=== PATIENT | male | born 1985 | race Caucasian/White ===

== ENCOUNTER 2017-10-18 04:15 | Inpatient (IN) | payer OTHER ==
[2017-10-18 04:27] VITALS: BMI 21.9
[2017-10-18] MEDS ORDERED: morphine CARPU-JECT 10 MG/1 ML DISP.SYRIN IVPUSH ONE ×2 (04:43→06:40)
[2017-10-18] MEDS ORDERED: ONDANSETRON 4 MG/2 ML VIAL IVPB ONE ×2 (04:43→12:15)
[2017-10-18] MEDS ORDERED: SODIUM CHLORIDE 0.9% 500 ML INFUS.BAG IV ONE (04:44)
--- NOTE | 2017-10-18 04:44 | PDOC ---
History of Present Illness - General Chief Complaint: Pain, Acute Stated Complaint: ABDOMINAL CRAMPING X 2 HOURS Time Seen by Provider: 10/18/17 04:41 - History of Present Illness Initial Comments: 10/18/17 06:43 Hx of crohns disease, dx'd in [place] about 10 years ago by biopsy, required treatment with biologics, though since then has not required treatment. SInce, then, one ED visit in [place] for abd symptoms without a specific diagnosis. Presenting now with 1/2 day of abd bloating and cramping pain. No n/v/d. Timing/Duration: 4-6 hours Severity: moderate Modifying Factors: worse with: eating Associated Symptoms: denies: fever/chills, nausea/vomiting Past History - Past Medical History Allergies/Adverse Reactions: Allergies Allergy/AdvReac Type Severity Reaction Status Date / Time No Known Allergies Allergy Verified 10/18/17 04:19 Home Medications: Ambulatory Orders Desvenlafaxine Succinate [Pristiq] 50 mg PO DAILY 10/18/17 Finasteride [Proscar -] 5 mg PO DAILY 10/18/17 COPD: No GI Disorders: Yes (CHROHNS 2009) - Suicide/Smoking/Psychosocial Hx Smoking History: Never smoked Have you smoked in the past 12 months: No Information on smoking cessation initiated: No Hx Alcohol Use: No Drug/Substance Use Hx: No Substance Use Type: None Review of Systems - Review of Systems All Other Systems: Reviewed and Negative *Physical Exam - Vital Signs Last Vital Signs Temp Pulse Resp BP Pulse Ox 98.6 F 82 16 123/82 123 H 10/18/17 04:22 10/18/17 04:22 10/18/17 04:22 10/18/17 04:22 10/18/17 04:22 - Physical Exam General Appearance: Yes: Nourished HEENT: positive: Normal Voice Neck: positive: Supple Respiratory/Chest: positive: Lungs Clear Cardiovascular: positive: Regular Rhythm Gastrointestinal/Abdominal: positive: Tender, Distended, Tenderness Lymphatic: negative: Adenopathy Musculoskeletal: positive: Normal Inspection Extremity: positive: Normal Capillary Refill Integumentary: positive: Normal Color Neurologic: positive: Fully Oriented ED Treatment Course - LABORATORY CBC & Chemistry Diagram: 10/18/17 05:00 10/18/17 05:00 Medical Decision Making - Medical Decision Making 10/18/17 06:47 concern for acute crohns enterocolitis analgesia IVF labs + image *DC/Admit/Observation/Transfer Diagnosis at time of Disposition: Abdominal pain Qualifiers: Abdominal location: generalized Qualified Code(s): R10.84 - Generalized abdominal pain - Discharge Dispostion Condition at time of disposition: Stable - Referrals - Patient Instructions - Post Discharge Activity
[2017-10-18] MEDS ORDERED: ONDANSETRON 4 MG/2 ML VIAL ONE ×2 (04:56→11:06)
[2017-10-18] MEDS ORDERED: morphine CARPU-JECT 10 MG/1 ML DISP.SYRIN ONE ×3 (04:56→11:06)
[2017-10-18 05:32] LABS: BASO % 0.3 % (0-2.0); EOS % 0.9 % (0-4.5); HEMATOCRIT 44.7 % (35.4-49); HEMOGLOBIN 15.1 GM/dL (11.7-16.9); LYMPH % 11.9 % (8-40); MCH 29.6 pg (25.7-33.7); MCHC 33.9 g/dl (32.0-35.9); MEAN CELL VOLUME 87.6 fl (80-96); MEAN PLT VOLUME 9.2 fl (7.5-11.1); MONO % 5.9 % (3.8-10.2); PLATELET COUNT 293 K/MM3 (134-434); RBC 5.11 M/mm3 (4.00-5.60); RDW 13.6 % (11.9-15.9); WHITE BLOOD COUNT 10.1 K/mm3 (4.0-10.0)
[2017-10-18 05:36] LABS: URINE APPEARANCE CLEAR; URINE BILIRUBIN NEGATIVE (<2.0 mg/dL); URINE BLOOD NEGATIVE (NEGATIVE); URINE COLOR STRAW; URINE GLUCOSE (UA) NEGATIVE (NEGATIVE); URINE KETONE NEGATIVE (NEGATIVE); URINE LEUK ESTERASE NEGATIVE (NEGATIVE); URINE NITRITE NEGATIVE (NEGATIVE); URINE PROTEIN NEGATIVE (NEGATIVE); URINE UROBILINOGEN NEGATIVE mg/dL (0.2-1.0)
[2017-10-18] MEDS ORDERED: morphine CARPU-JECT 4 MG/1 ML DISP.SYRIN IVPUSH ONE ×3 (05:39→12:16)
[2017-10-18 06:16] LABS: ALBUMIN 4.1 g/dl (3.4-5.0); ANION GAP 13 (8-16); BILIRUBIN,TOTAL 0.3 mg/dL (0.2-1.0); BLOOD UREA NITROGEN 17 mg/dL (7-18); CALCIUM 9.7 mg/dL (8.5-10.1); CHLORIDE 102 mmol/L (98-107); CO2 26 mmol/L (21-32); CREATININE 0.8 mg/dL (0.7-1.3); GLUCOSE,RANDOM 113 mg/dL (74-106); LIPASE 120 U/L (73-393); POTASSIUM 4.5 mmol/L (3.5-5.1); SGOT/AST 37 U/L (15-37); SGPT/ALT 84 U/L (12-78); SODIUM 141 mmol/L (136-145); TOT PROT 7.6 g/dl (6.4-8.2)
[2017-10-18 06:17] LABS: ALK PHOS 110 U/L (45-117)
[2017-10-18 10:06] LABS: ERYTHROCYTE SEDIMENTATION RATE 8 mm/hr (0-10)
--- NOTE | 2017-10-18 10:11 | PDOC ---
*Physical Exam - Vital Signs Last Vital Signs Temp Pulse Resp BP Pulse Ox 98.6 F 87 18 114/83 96 10/18/17 10:06 10/18/17 10:06 10/18/17 10:06 10/18/17 10:06 10/18/17 10:06 - Physical Exam Comments:: 10/18/17 10:09 Pain is still present but subsiding somewhat. No vomiting. No diarrhea CT shows evidence of inflammation in the ileocecal region with possible partial obstruction. Admission discussed with the patient and his family. Hospitalist contacted. GI consult contacted. Patient is hemodynamically stable without evidence of peritonitis or sepsis. 10/18/17 11:04 Spoke with , GI. She will evaluate the patient in consult at [facility]. She recommends steroids since there is no diarrhea. Steroids administered and hospitalist contacted for admission. ED Treatment Course - LABORATORY CBC & Chemistry Diagram: 10/18/17 05:00 10/18/17 05:00 - ADDITIONAL ORDERS Additional order review: Laboratory Results 10/18/17 10/18/17 05:00 05:00 Sodium 141 Potassium 4.5 Chloride 102 Carbon Dioxide 26 Anion Gap 13 BUN 17 Creatinine 0.8 Creat Clearance w eGFR > 60 Random Glucose 113 H Calcium 9.7 Total Bilirubin 0.3 AST 37 ALT 84 H Alkaline Phosphatase 110 Total Protein 7.6 Albumin 4.1 Lipase 120 Urine Color Straw Urine Appearance Clear Urine pH 7.0 Ur Specific [place] 1.011 Urine Protein Negative Urine Glucose (UA) Negative Urine Ketones Negative Urine Blood Negative Urine Nitrite Negative Urine Bilirubin Negative Urine Urobilinogen Negative Ur Leukocyte Esterase Negative 10/18/17 05:00 RBC 5.11 MCV 87.6 MCHC 33.9 RDW 13.6 MPV 9.2 Neutrophils % 81.0 Lymphocytes % 11.9 Monocytes % 5.9 Eosinophils % 0.9 Basophils % 0.3 - Medications Given in the ED: ED Medications Discontinued Medications Generic Name Dose Route Start Last Admin Trade Name Freq PRN Reason Stop Dose Admin Morphine Sulfate 6 mg 10/18/17 04:43 10/18/17 05:09 Morphine Injection - IVPUSH 10/18/17 04:44 6 mg ONCE ONE Administration Morphine Sulfate 4 mg 10/18/17 05:39 10/18/17 05:39 Morphine Injection - IVPUSH 10/18/17 05:40 4 mg NOW ONE Administration Morphine Sulfate 6 mg 10/18/17 06:40 10/18/17 06:54 Morphine Injection - IVPUSH 10/18/17 06:41 6 mg ONCE ONE Administration Ondansetron HCl 4 mg 10/18/17 04:43 10/18/17 05:09 Zofran Injection IVPB 10/18/17 04:44 4 mg ONCE ONE Administration Sodium Chloride 1,000 ml 10/18/17 04:44 10/18/17 04:57 Normal Saline - IV 10/18/17 04:45 1,000 ml ONCE ONE Administration *DC/Admit/Observation/Transfer Diagnosis at time of Disposition: Abdominal pain Qualifiers: Abdominal location: generalized Qualified Code(s): R10.84 - Generalized abdominal pain - Discharge Dispostion Condition at time of disposition: Stable Admit: Yes - Referrals - Patient Instructions - Post Discharge Activity
[2017-10-18] MEDS ORDERED: morphine SULFATE 4 MG/ML VIAL ONE (10:13)
[2017-10-18] MEDS ORDERED: HYDROmorphone HCL CARPU-JECT 1 MG/1 ML DISP.SYRIN IVPB ONE (12:08)
--- NOTE | 2017-10-18 12:11 | HP ---
CHIEF COMPLAINT: abdominal pain PCP: Dr Friedman HISTORY OF PRESENT ILLNESS: Patient is a 32 y/o male with a past medical history of crohn's disease and depression. He was treated 10 years ago at [facility], received remecidade and 6 mercaptopurine. patient reports he has been in remission for the past 10 years and has not followed up with GI since 2010. Patient reports developing abdominal pain and bloating for the past 12 hours. He denies any fever. ER course was notable for: (1) ct of abd/pelvis thickening of the terminal ileum wall with moderate dilation of distal ileum bowel loop suggestive of obstruction at the ileocecal valve (partial), suggestive of inflammatory/infectious, no evidence of extraluminal air or fluid collection/abscess (2) wbc 10.1 (3) Recent Travel: none PAST MEDICAL HISTORY: see hpi PAST SURGICAL HISTORY: none Social History: employed health care attorney, , 1 daughter Smoking:none Alcohol:none Drugs: none Family History: mother alive and well father alive and well, htn Allergies No Known Allergies Allergy (Verified 10/18/17 04:19) HOME MEDICATIONS: Home Medications Medication Instructions Recorded Desvenlafaxine Succinate [Pristiq] 50 mg PO DAILY 10/18/17 Finasteride [Proscar -] 5 mg PO DAILY 10/18/17 REVIEW OF SYSTEMS CONSTITUTIONAL: Absent: fever, chills, diaphoresis, generalized weakness, malaise, loss of appetite, weight change HEENT: Absent: rhinorrhea, nasal congestion, throat pain, throat swelling, difficulty swallowing, mouth swelling, ear pain, eye pain, visual changes CARDIOVASCULAR: Absent: chest pain, syncope, palpitations, irregular heart rate, lightheadedness , peripheral edema RESPIRATORY: Absent: cough, shortness of breath, dyspnea with exertion, orthopnea, wheezing, stridor, hemoptysis GASTROINTESTINAL: present: abdominal pain, nausea Absent: abdominal distension, vomiting, diarrhea, constipation, melena, hematochezia GENITOURINARY: Absent: dysuria, frequency, urgency, hesitancy, hematuria, flank pain, genital pain MUSCULOSKELETAL: Absent: myalgia, arthralgia, joint swelling, back pain, neck pain SKIN: Absent: rash, itching, pallor HEMATOLOGIC/IMMUNOLOGIC: Absent: easy bleeding, easy bruising, lymphadenopathy, frequent infections ENDOCRINE: Absent: unexplained weight gain, unexplained weight loss, heat intolerance, cold intolerance NEUROLOGIC: Absent: headache, focal weakness or paresthesias, dizziness, unsteady gait, seizure, mental status changes, bladder or bowel incontinence PSYCHIATRIC: Absent: anxiety, depression, suicidal or homicidal ideation, hallucinations. PHYSICAL EXAMINATION Vital Signs - 24 hr 10/18/17 10/18/17 10/18/17 04:22 05:38 06:40 Temperature 98.6 F Pulse Rate 82 Pulse Rate [ 95 H Right Radial] Respiratory 16 16 Rate Blood Pressure 123/82 Blood Pressure 129/92 121/83 [Left Arm] O2 Sat by Pulse 123 H 95 Oximetry (%) 10/18/17 10:06 Temperature 98.6 F Pulse Rate Pulse Rate [ 87 Right Radial] Respiratory 18 Rate Blood Pressure Blood Pressure 114/83 [Left Arm] O2 Sat by Pulse 96 Oximetry (%) GENERAL: Awake, alert, and fully oriented, in no acute distress. HEAD: Normal with no signs of trauma. EYES: Pupils equal, round and reactive to light, extraocular movements intact, sclera anicteric, conjunctiva clear. No lid lag. EARS, NOSE, THROAT: Ears normal, nares patent, oropharynx clear without exudates. Moist mucous membranes. NECK: Normal range of motion, supple without lymphadenopathy, JVD, or masses. LUNGS: Breath sounds equal, clear to auscultation bilaterally. No wheezes, and no crackles. No accessory muscle use. HEART: Regular rate and rhythm, normal S1 and S2 without murmur, rub or gallop. ABDOMEN: Soft, diffuse abdominal tenderness, not distended, normoactive bowel sounds, no guarding, no rebound, no masses. No hepatomegaly or splenomegaly. MUSCULOSKELETAL: Normal range of motion at all joints. No bony deformities or tenderness. No CVA tenderness. UPPER EXTREMITIES: 2+ pulses, warm, well-perfused. No cyanosis. No clubbing. No peripheral edema. LOWER EXTREMITIES: 2+ pulses, warm, well-perfused. No calf tenderness. No peripheral edema. NEUROLOGICAL: Cranial nerves II-XII intact. Normal speech. Normal gait. PSYCHIATRIC: Cooperative. Good eye contact. Appropriate mood and affect. SKIN: Warm, dry, normal turgor, no rashes or lesions noted, normal capillary refill. Laboratory Results - last 24 hr 10/18/17 10/18/17 10/18/17 05:00 05:00 05:00 WBC 10.1 H RBC 5.11 Hgb 15.1 Hct 44.7 MCV 87.6 MCH 29.6 MCHC 33.9 RDW 13.6 Plt Count 293 MPV 9.2 Neutrophils % 81.0 Lymphocytes % 11.9 Monocytes % 5.9 Eosinophils % 0.9 Basophils % 0.3 ESR 8 Sodium 141 Potassium 4.5 Chloride 102 Carbon Dioxide 26 Anion Gap 13 BUN 17 Creatinine 0.8 Creat Clearance w eGFR > 60 Random Glucose 113 H Calcium 9.7 Total Bilirubin 0.3 AST 37 ALT 84 H Alkaline Phosphatase 110 Total Protein 7.6 Albumin 4.1 Lipase 120 Urine Color Straw Urine Appearance Clear Urine pH 7.0 Ur Specific [place] 1.011 Urine Protein Negative Urine Glucose (UA) Negative Urine Ketones Negative Urine Blood Negative Urine Nitrite Negative Urine Bilirubin Negative Urine Urobilinogen Negative Ur Leukocyte Esterase Negative ASSESSMENT/PLAN: 1) GI crohn's disease exacerbation partial obstruction - ct of abd reviewed, consistent with acute crohn's exacerbation, discussed with GI Dr Deras, start solumedrol 20mg tid - start empiric rocephin and flagyl - trend wbc and fever curve - GI, Dr Deras consulted and followed - appreciate surgery input 2) psych depression - continue home medication f/e/n - npo - replete electrolytes prn ppx - pepcid - oob - scd dispo: pt requires inpatient admission Hospitalist Screening - Colonoscopy Questionnaire Colonoscopy Questionnaire: Colonoscopy Questionnaire
[2017-10-18] MEDS ORDERED: PATIENT'S OWN MEDICATION (NON-FORMULARY) (Desvenlafaxine Succinate [Pristiq] 50 MG) PO SCH (12:15)
[2017-10-18] MEDS ORDERED: HYDROCORTISONE SOD SUCCINATE 100 MG/2 ML VIAL IVPB ONE (12:17)
[2017-10-18] MEDS: FAMOTIDINE 20 MG/50 ML IVPB 20 MG/50 ML MG IVPB SCH ×2 (12:30→21:31)
[2017-10-18] MEDS ORDERED: FAMOTIDINE 20 MG/50 ML IVPB 20 MG/50 ML MG IVPB ONE (12:32)
[2017-10-18] MEDS ORDERED: HYDROmorphone HCL CARPU-JECT 1 MG/1 ML DISP.SYRIN ONE (12:32)
[2017-10-18] MEDS ORDERED: HYDROCORTISONE SOD SUCCINATE 2 ML ONE (12:32)
[2017-10-18] MEDS: SODIUM CHLORIDE 1,000 ML IV SCH (12:41)
--- NOTE | 2017-10-18 13:03 | CON.GI ---
Consult Reason for Consultation:: abdominal pain - History of Present Illness History of Present Illness: Mr. Yu is a 32 year old man with a past medical history significant for Crohn's disease diagnosed approximately 10 years ago. He was treated with remicade in the past and now is not an any medications. He presents to the hospital with complaints of abdominal pain - right sided /bloating and cramps. He denies diarrhea, melena, BRBR, nausea, vomiting, fever, chills, travel, abx use. He has not had a recent endoscopic evaluation. - History Source History Provided By: Patient Limitations to Obtaining History: No Limitations - Past Medical History CLOSING COORDINATOR: No: Alzheimer's, CVA, Dementia, Migraine, Multiple Sclerosis, Peripheral Neuropathy, Parkinson's, Seizure, Syncope, TIA, Vertigo, Other Cardio/Vascular: No: AFIB, Aneurysm, Aortic Insufficiency, Aortic Stenosis, CAD , CHF, Deep Vein Thrombosis, HTN, Hyperlipdemia, PA, Mitral Insufficiency, Mitral Stenosis, Murmur, Pulmonary Hypertension, Other Pulmonary: No: Asthma, Bronchitis, Cancer, COPD, O2 Dependent, Pneumonia, Previously Intubated, Pulmonary Embolus, Pulmonary Fibrosis, Sleep Apnea, Other Gastrointestinal: Yes: Other Hepatobiliary: No: Cirrhosis, Cholelithiasis, Cholecystitis, Choledocholithiasis , Hepatitis A, Hepatitis B, Hepatitis C, Other Renal/: Yes: Other (BPH) Heme/Onc: No: Anemia, B12 Deficiency, Bleeding Disorder, Cancer, Current Chemotherapy, Current Radiation Therapy, Hemochromatosis, Hypercoaguable State, Myeloproliferative Synd, Sickle Cell Disease, Sickle Cell Trait, Thrombocytopenia, Other Psych: No: Addictions, Anxiety, Bipolar, Depression, Panic, Psychosis, Schizophrenia, Other Musculoskeletal: No: Bursitis, Chronic low back pain, Hemiparesis, Hemiplegia, Osteoarthritis, Paraplegia, Other Rheumatology: No: Fibromyalgia, Gout, Lupus, Rheumatoid Arthritis, Sarcoidosis, Vasculitis, Other ENT: No: Allergic Rhinitis, Sinusitis, Other - Alcohol/Substance Use Hx Alcohol Use: No - Smoking History Smoking history: Never smoked Have you smoked in the past 12 months: No Home Medications - Allergies Allergies/Adverse Reactions: Allergies Allergy/AdvReac Type Severity Reaction Status Date / Time No Known Allergies Allergy Verified 10/18/17 04:19 - Home Medications Home Medications: Ambulatory Orders Desvenlafaxine Succinate [Pristiq] 50 mg PO DAILY 10/18/17 Finasteride [Proscar -] 5 mg PO DAILY 10/18/17 Family Disease History - Family Disease History Family History: Denies Review of Systems - Review of Systems Constitutional: reports: Weakness Eyes: denies: No Symptoms, Blind Spots, Blurred Vision, Double Vision, Eye Pain , Floaters, Photophobia, Recent Change in Vision, Other HENT: denies: No Symptoms, Difficult Swallowing, Ear Discharge, Ear Pain, Epistaxis, Gingival Bleeding, Hearing Loss, Mouth Swelling, Nasal Congestion, Ocular Prosthesis, Throat Pain, Toothache, Ringing in Ears, Other Neck: denies: No Symptoms, Decreased ROM, Lumps, Pain on Movement, Stiffness, Swollen Glands, Tenderness, Other Cardiovascular: denies: No Symptoms, Chest Pain, Edema, Palpitations, Shortness of Breath, Other Respiratory: denies: No Symptoms, Cough, Exercise Intolerance, Hemoptysis, Orthopnea, PND, Snoring, SOB, SOB on Exertion, Wheezing, Other Gastrointestinal: reports: Abdominal Pain, Bloating Genitourinary: denies: No Symptoms, Burning, Discharge, Dysuria, Flank Pain, Frequency, Hematuria, Incontinence, Lesions, Menses, Pain, Testicular Mass, Testicular Pain, Testicular Swelling, Urgency, Vaginal Bleeding, Other Breasts: denies: No Symptoms Reported, See HPI, Breast Implants, Discharge from Nipple, Lumps, Pain, Skin Changes, Other Musculoskeletal: denies: No Symptoms, Back Pain, Crepitus, Decreased ROM, Extremity Pain, Joint Pain, Joint Swelling, Muscle Pain, Muscle Cramps, Muscle Weakness, Other Physical Exam-GI Vital Signs: Vital Signs Temperature 98.4 F 10/18/17 12:03 Pulse Rate 94 H 10/18/17 12:03 Respiratory Rate 17 10/18/17 12:03 Blood Pressure 110/57 10/18/17 12:03 O2 Sat by Pulse Oximetry (%) 96 10/18/17 12:03 Constitutional: Yes: Well Nourished Eyes: Yes: WNL HENT: Yes: WNL Neck: Yes: WNL Cardiovascular: Yes: WNL, S1, S2 Respiratory: Yes: WNL ...Auscultate: Yes: Normoactive Bowel Sounds ...Palpate: Yes: Other (right sided tenderness , no rebound or guarding , nml bs ) ...Rectal Exam: Yes: Deferred Genitourinary: Yes: WNL Edema: No Peripheral Pulses WNL: Yes Neurological: Yes: WNL Labs: CBC, BMP 10/18/17 05:00 10/18/17 05:00 Imaging - Results Cat Scan: Report Reviewed, Image Reviewed Problem List - Problems (1) Abdominal pain Assessment/Plan: Impression: abdominal pain most likely secondary to crohn's flare Recommendation: - levaquin 500 mg iv qd - flagyl 500mg IV TID - clear liquid diet - esr, crp, quantiferon - am cbc , cmet - solumedrol 20mg iv Q8 taper by 10 mg every two days - surgery evaluation - if any loose BM - please culture and contact me Code(s): R10.9 - UNSPECIFIED ABDOMINAL PAIN Qualifiers: Abdominal location: generalized Qualified Code(s): R10.84 - Generalized abdominal pain
[2017-10-18] MEDS ORDERED: methylPREDNISolone NA SUCC 40 MG/1 ML VIAL IVPUSH SCH (14:00)
[2017-10-18] MEDS: CEFTRIAXONE 2 GM/100 ML BAG IVPB SCH (14:53)
[2017-10-18] MEDS: FINASTERIDE 5 MG TABLET (FP) PO SCH (14:53)
[2017-10-18] MEDS: methylPREDNISolone NA SUCC 40 MG/1 ML VIAL IVPUSH SCH (17:13)
[2017-10-18] MEDS: ONDANSETRON 4 MG/2 ML VIAL IVPUSH PRN (17:13)
[2017-10-18] MEDS: HYDROmorphone HCL CARPU-JECT 1 MG/1 ML DISP.SYRIN IVPB PRN ×2 (17:13→22:22)
--- NOTE | 2017-10-18 21:25 | CONSULT ---
- Consultation REQUESTING PROVIDER: CONSULT REQUEST: We have been asked to surgically evaluate this patient for abdominal pain. PCP:Ciara Mixon HISTORY OF PRESENT ILLNESS: The patient is a 32 yo male with a history of Chron' s disease. For the past 10 years he hasn't had any problems with his disease and has been off medications. Yesterday, he had a normal bowel movement after dinner and then awoke after midnight with crampy abdominal pain. No bloody in his stool, no nausea or emesis. No fever or chills. PMHx: Chron's disease PSHx: bilateral inguinal hernia repair and surgery to correct undesended testicle at the age of 1 Home Medications Medication Instructions Recorded Desvenlafaxine Succinate [Pristiq] 50 mg PO DAILY 10/18/17 Finasteride [Proscar -] 5 mg PO DAILY 10/18/17 Allergies Allergy/AdvReac Type Severity Reaction Status Date / Time No Known Allergies Allergy Verified 10/18/17 04:19 REVIEW OF SYSTEMS: CONSTITUTIONAL: Absent: fever, chills CARDIOVASCULAR: Absent: chest pain, syncope, palpitations RESPIRATORY: Absent: cough, shortness of breath GASTROINTESTINAL: Present: abdominal pain, abdominal distension GENITOURINARY: Absent: dysuria, hematuria HEMATOLOGIC/IMMUNOLOGIC: Absent: easy bleeding, easy bruising PHYSICAL EXAM: GENERAL: Awake, alert, and fully oriented, in no acute distress. HEAD: Normal with no signs of trauma. EYES: sclera anicteric, conjunctiva clear LUNGS: Clear to auscultation bilat anteriorly. No wheezes, and no crackles. No accessory muscle use. HEART: Regular rate and rhythm. No murmurs ABDOMEN: Soft, slight epigastric tendernss/fullness. Mild RLQ tenderness without rebound or guarding NEUROLOGICAL: Normal speech, gait not observed. SKIN: Warm, dry, normal turgor. Vital Signs Temperature 98.4 F 10/18/17 14:10 Pulse Rate 103 H 10/18/17 14:10 Respiratory Rate 17 10/18/17 20:09 Blood Pressure 113/67 10/18/17 14:10 O2 Sat by Pulse Oximetry (%) 96 10/18/17 20:09 Lab Results WBC 10.1 K/mm3 (4.0-10.0) H 10/18/17 05:00 RBC 5.11 M/mm3 (4.00-5.60) 10/18/17 05:00 Hgb 15.1 GM/dL (11.7-16.9) 10/18/17 05:00 Hct 44.7 % (35.4-49) 10/18/17 05:00 MCV 87.6 fl (80-96) 10/18/17 05:00 MCHC 33.9 g/dl (32.0-35.9) 10/18/17 05:00 RDW 13.6 % (11.9-15.9) 10/18/17 05:00 Plt Count 293 K/MM3 (134-434) 10/18/17 05:00 Sodium 141 mmol/L (136-145) 10/18/17 05:00 Potassium 4.5 mmol/L (3.5-5.1) 10/18/17 05:00 Chloride 102 mmol/L (98-107) 10/18/17 05:00 Carbon Dioxide 26 mmol/L (21-32) 10/18/17 05:00 Anion Gap 13 (8-16) 10/18/17 05:00 BUN 17 mg/dL (7-18) 10/18/17 05:00 Creatinine 0.8 mg/dL (0.7-1.3) 10/18/17 05:00 Random Glucose 113 mg/dL (74-106) H 10/18/17 05:00 Calcium 9.7 mg/dL (8.5-10.1) 10/18/17 05:00 CT scan with oral contrast: thickening of distal terminal ileum with paratial SBO, distal SB dilated. No abscess/collection or free air Problem List - Problems (1) Acute Crohn's disease with intestinal obstruction Assessment/Plan: Pt with PSBO mostly likely secondary to his Chron's disease. He currently remains afebile without leukocytosis. He appears comfortable without any associated nausea or emesis. If the patient develops any of these symptoms then he may require and NGT for decompression. At this time will continue npo/IV hydration. IV steriods and IV antibioitcs have been administered. Surgery to follow but at this time no acute need for any surgery. GI consult obtained. D/w Dr. Torres Code(s): K50.912 - CROHN'S DISEASE, UNSPECIFIED, WITH INTESTINAL OBSTRUCTION Visit type - Case Type Case Type: ED Admission - Emergency Emergency Visit: Yes ED Registration Date: 10/18/17 Care time: The patient presented to the Emergency Department on the above date and was hospitalized for further evaluation of their emergent condition. - New patient This patient is new to me today: Yes Date on this admission: 10/18/17
[2017-10-19] MEDS: ACETAMINOPHEN 325 MG TABLET (FP) PO PRN (00:49)
[2017-10-19] MEDS: methylPREDNISolone NA SUCC 40 MG/1 ML VIAL IVPUSH SCH ×3 (01:37→17:34)
--- NOTE | 2017-10-19 08:21 | PN ---
Physical Exam: SUBJECTIVE: Patient seen and examined, sitting up in bed, reports feeling hungry , reports +flatus, bm this afternoon OBJECTIVE: patient is a 32 y/o male with a past medical history of crohn's disease and depression. Patient was admitted from the emergency department for emergent condition. Vital Signs Period Temp Pulse Resp BP Sys/Moya Pulse Ox Last 24 Hr 97.9 F-98.6 F 87-103 16-18 91-114/50-83 95-96 GENERAL: The patient is awake, alert, and fully oriented, in no acute distress. HEAD: Normal with no signs of trauma. EYES: PERRL, extraocular movements intact, sclera anicteric, conjunctiva clear. No ptosis. ENT: Ears normal, nares patent, oropharynx clear without exudates, moist mucous membranes. NECK: Trachea midline, full range of motion, supple. LUNGS: Breath sounds equal, clear to auscultation bilaterally, no wheezes, no crackles, no accessory muscle use. HEART: Regular rate and rhythm, S1, S2 without murmur, rub or gallop. ABDOMEN: Soft, + hypoactive bowel sounds, nontender, nondistended, no guarding, no rebound, no hepatosplenomegaly, no masses. EXTREMITIES: 2+ pulses, warm, well-perfused, no edema. NEUROLOGICAL: Cranial nerves II through XII grossly intact. Normal speech, gait not observed. PSYCH: Normal mood, normal affect. SKIN: Warm, dry, normal turgor, no rashes or lesions noted Laboratory Results - last 24 hr 10/18/17 05:00 ESR 8 Active Medications Generic Name Dose Route Start Last Admin Trade Name Freq PRN Reason Stop Dose Admin Acetaminophen 650 mg 10/18/17 13:22 10/19/17 00:49 Tylenol - PO 650 mg Q4H PRN Administration FEVER Clotrimazole 1 applic 10/19/17 10:00 Lotrisone Cream (Small Tube) TP BID GIANNA Finasteride 5 mg 10/18/17 12:15 10/18/17 14:53 Proscar - PO 5 mg DAILY GIANNA Administration Hydromorphone HCl 1 mg 10/19/17 08:02 Dilaudid Injection - IVPB Q6H PRN PAIN LEVEL 7 - 10 Ceftriaxone Sodium 2 gm in 100 mls @ 200 mls/hr 10/18/17 12:15 10/18/17 14:53 Rocephin 2gm Ivpb (Pre-Docked) IVPB 200 mls/hr DAILY GIANNA Administration Protocol Metronidazole 500 mg in 100 mls @ 100 mls/hr 10/18/17 12:15 10/19/17 01:37 Flagyl 500mg Premixed Ivpb - IVPB 100 mls/hr Q8H-IV GIANNA Administration Famotidine/Sodium Chloride 20 mg in 50 mls @ 100 mls/hr 10/18/17 12:15 21:31 Pepcid 20 Mg Premixed Ivpb - IVPB 100 mls/hr BID GIANNA Administration Sodium Chloride 1,000 mls @ 100 mls/hr 10/18/17 12:30 10/18/17 12:41 Normal Saline - IV 100 mls/hr ASDIR GIANNA Administration Methylprednisolone Sodium Succinate 20 mg 10/18/17 18:00 10/19/17 01:37 Solu-Medrol - IVPUSH 20 mg Q8H-IV GIANNA Administration Non-Formulary Medication 50 mg 10/18/17 12:15 Desvenlafaxine Succinate [Pristiq] PO DAILY GIANNA Ondansetron HCl 4 mg 10/18/17 12:05 10/18/17 17:13 Zofran Injection IVPUSH 4 mg Q6H PRN Administration NAUSEA AND/OR VOMITING imaging ct of abd/pelvis thickening of the terminal ileum wall with moderate dilation of distal ileum bowel loop suggestive of obstruction at the ileocecal valve ( partial), suggestive of inflammatory/infectious, no evidence of extraluminal air or fluid collection/abscess ASSESSMENT/PLAN: 1) GI crohn's disease exacerbation partial obstruction - continue solumedrol 20mg tid - continue empiric rocephin and flagyl - trend wbc and fever curve - GI, Dr Deras consulted and followed - Dr Torres surgery consuted and followed 2) psych depression - continue home medication f/e/n - clear liquid will advance as tolerated - replete electrolytes prn ppx - pepcid - oob - scd dispo: pt requires inpatient admission
[2017-10-19 08:44] LABS: BASO % 0.1 % (0-2.0); EOS % 0.1 % (0-4.5); HEMATOCRIT 41.1 % (35.4-49); HEMOGLOBIN 13.9 GM/dl (11.7-16.9); LYMPH % 15.8 % (8-40); MCH 29.3 pg (25.7-33.7); MCHC 33.8 g/dl (32.0-35.9); MEAN CELL VOLUME 86.7 fl (80-96); MEAN PLT VOLUME 8.6 fl (7.5-11.1); MONO % 5.4 % (3.8-10.2); NEUT % 78.6 % (42.8-82.8); PLATELET COUNT 310 K/MM3 (134-434); RBC 4.74 M/mm3 (4.00-5.60); RDW 12.6 % (11.9-15.9); WHITE BLOOD COUNT 6.2 K/mm3 (4.0-10.8)
--- NOTE | 2017-10-19 09:05 | PN ---
Progress Note (short form) - Note Progress Note: Attending Surgeon Seen 10/18/17; concur w/ a/p as outlined by Lizz Sandoval PA-C. Danny Torres MD FACS
[2017-10-19 09:09] LABS: ALBUMIN 3.6 g/dl (3.5-5.0); ALK PHOS 85 U/L (32-92); ANION GAP 3 (8-16); BILIRUBIN,TOTAL 0.6 mg/dl (0.2-1.0); BLOOD UREA NITROGEN 10 mg/dl (7-18); CALCIUM 9.2 mg/dl (8.4-10.2); CHLORIDE 105 mmol/L (98-107); CO2 29 mmol/L (22-28); GLUCOSE,RANDOM 119 mg/dl (74-106); PHOSPHOROUS 3.7 mg/dl (2.5-4.6); POTASSIUM 4.3 mmol/L (3.5-5.1); SGOT/AST 20 U/L (10-42); SGPT/ALT 44 U/L (10-40); SODIUM 137 mmol/L (136-145); TOT PROT 6.4 g/dl (6.4-8.3)
[2017-10-19] MEDS ORDERED: PT OWN MED DRAWER 7, Y5N ONE (09:18)
[2017-10-19] MEDS: CEFTRIAXONE 2 GM/100 ML BAG IVPB SCH (09:43)
[2017-10-19] MEDS: CLOTRIMAZOLE/BETAMET DIPROP 15 GM TUBE TP SCH ×2 (09:45→21:35)
[2017-10-19] MEDS: FINASTERIDE 5 MG TABLET (FP) PO SCH (09:46)
[2017-10-19] MEDS: HYDROmorphone HCL CARPU-JECT 2 MG/1 ML DISP.SYRIN IVPB PRN ×2 (09:50→22:39)
[2017-10-19] MEDS: FAMOTIDINE 20 MG/50 ML IVPB 20 MG/50 ML MG IVPB SCH ×2 (09:51→21:35)
[2017-10-19 10:01] LABS: CREATININE < 0.8 mg/dl (0.6-1.3)
[2017-10-19] MEDS: SODIUM CHLORIDE 1,000 ML IV SCH (13:00)
--- NOTE | 2017-10-19 13:52 | PN ---
Progress Note (short form) - Note Progress Note: Patient being followed for exacerbation of crohns with PSBO, Seen and examined at bedside. Patient is tolerating a clear liquid diet and says he had a non- bloody BM this morning. He has been passing gas and states overall he feels well. He denies any CP, SOB, N/V/D Fever or chills. Vital Signs Temp 98.6 F 10/19/17 08:48 Pulse 100 H 10/19/17 08:48 Resp 18 10/19/17 08:48 BP 105/70 10/19/17 08:48 Pulse Ox 97 10/19/17 08:48 Intake & Output 10/18/17 10/19/17 10/19/17 23:59 11:59 23:59 Intake Total 100 1550 300 Balance 100 1550 300 Weight 140 lb Intake: IV 1100 Normal Saline - 1,000 ml 1100 @ 100 mls/hr IV ASDIR GIANNA Rx#:[id number] IVPB 100 100 Oral 0 350 300 Other: Voiding Method Toilet Toilet # Unmeasured Voids Void 1 1 Height 5 ft 7 in Body Mass Index (BMI) 21.9 Weight Measurement Method Standing Scale CBC, BMP 10/19/17 08:22 10/19/17 08:22 ABd X-rays reveal stool contrast throughout colon with no evidence of air fluid levels or obstruction. PE: A&O x3, NAD, Ambulating without assistance unlabored resp on RA Abdomen: soft, and non-distended with mild ttp in right upper quadrant, no guarding or rebound tenderness. non-tender in Epigastric area or RLQ, LUQ/LLQ. Problem List - Problems (1) Acute Crohn's disease with intestinal obstruction Assessment/Plan: PSBO appears to be resolving. 1) Advance diet as tolerated 2) Continue Iron and vitamins 3) Nutrition counseling 4) d/c plannning 5) Reconsult Surgery PRN Evaluation and plan discussed with Dr. Torres. Code(s): K50.912 - CROHN'S DISEASE, UNSPECIFIED, WITH INTESTINAL OBSTRUCTION
[2017-10-19] MEDS: ONDANSETRON 4 MG/2 ML VIAL IVPUSH PRN (18:08)
[2017-10-20] MEDS: methylPREDNISolone NA SUCC 40 MG/1 ML VIAL IVPUSH SCH ×2 (01:26→09:20)
[2017-10-20] MEDS: ACETAMINOPHEN 325 MG TABLET (FP) PO PRN (01:35)
[2017-10-20 06:20] VITALS: BP 102/51; PULSE 90; TEMP 98.6
[2017-10-20] MEDS ORDERED: SODIUM CHLORIDE 1,000 ML IV SCH (07:10)
[2017-10-20] MEDS ORDERED: PT OWN MED DRAWER 7, Y5N ONE (08:49)
[2017-10-20] MEDS: FAMOTIDINE 20 MG/50 ML IVPB 20 MG/50 ML MG IVPB SCH (09:18)
[2017-10-20] MEDS: CLOTRIMAZOLE/BETAMET DIPROP 15 GM TUBE TP SCH (09:19)
[2017-10-20] MEDS: CEFTRIAXONE 2 GM/100 ML BAG IVPB SCH (09:20)
[2017-10-20] MEDS: FINASTERIDE 5 MG TABLET (FP) PO SCH (09:20)
--- NOTE | 2017-10-20 10:03 | EKG ---
Test Reason : Blood Pressure : / mmHG Vent. Rate : 093 BPM Atrial Rate : 093 BPM P-R Int : 142 ms QRS Dur : 094 ms QT Int : 352 ms P-R-T Axes : 071 061 052 degrees QTc Int : 437 ms NORMAL SINUS RHYTHM NORMAL ECG NO PREVIOUS ECGS AVAILABLE Confirmed by KAILEE NY MD ([id number]) on 10/20/2017 10:02:49 AM Referred By: MADELIN CONNER Confirmed By:KAILEE NY MD
--- NOTE | 2017-10-20 12:18 | DS ---
Physical Exam: SUBJECTIVE: Patient seen and examined, OBJECTIVE: Vital Signs Period Temp Pulse Resp BP Sys/Moya Pulse Ox Last 24 Hr 98.6 F-98.9 F 90-95 16-18 99-102/51-59 93-96 PHYSICAL EXAM GENERAL: The patient is awake, alert, and fully oriented, in no acute distress. HEAD: Normal with no signs of trauma. EYES: PERRL, extraocular movements intact, sclera anicteric, conjunctiva clear. ENT: Ears normal, nares patent, oropharynx clear without exudates, moist mucous membranes. NECK: Trachea midline, full range of motion, supple. LUNGS: Breath sounds equal, clear to auscultation bilaterally, no wheezes, no crackles, no accessory muscle use. HEART: Regular rate and rhythm, S1, S2 without murmur, rub or gallop. ABDOMEN: Soft, nontender, nondistended, normoactive bowel sounds, no guarding, no rebound, no hepatosplenomegaly, no masses. EXTREMITIES: 2+ pulses, warm, well-perfused, no edema. NEUROLOGICAL: Cranial nerves II through XII grossly intact. Normal speech, gait not observed. PSYCH: Normal mood, normal affect. SKIN: Warm, dry, normal turgor, no rashes or lesions noted. LABS HOSPITAL COURSE: Date of Admission:10/18/17 Date of Discharge: 10/20/17 Minutes to complete discharge: 45 Discharge Summary Reason For Visit: ABDOMINAL CRAMPING X 2 HOURS Current Active Problems Abdominal pain (Acute) Acute Crohn's disease with intestinal obstruction (Acute) Condition: Stable - Instructions - Home Medications Comprehensive Discharge Medication List: Ambulatory Orders Desvenlafaxine Succinate [Pristiq] 50 mg PO DAILY 10/18/17 Finasteride [Proscar -] 5 mg PO DAILY 10/18/17
== END 2017-10-20 13:00 | disposition home or self-care (01) | DRG 386 ==
LOC: FER 04:15 → FM/S 12:25
PROVIDERS: ADMIT Internal Medicine; ATTEND Nurse Practitioner Family
DX: K50.912 Crohn's disease, unspecified, with intestinal obstruction (principal); F32.9 Major depressive disorder, single episode, unspecified
CPT/HCPCS: 36415; 71046-TC-FY; 74019-TC-FY; 74177-TC; 80053; 81003; 83690; 83735; 84100; 85025; 85651; 87086; 93005; 93010; 99283-25; J7030

== ENCOUNTER 2021-07-03 15:32 | Emergency (ER) | payer OTHER ==
[2021-07-03 15:51] VITALS: BP 120/80; PULSE 88; TEMP 98.8; BMI 23.9
[2021-07-03] MEDS ORDERED: DEXAMETHASONE SOD PHOSPHATE 10 MG/1 ML VIAL IM ONE (16:21)
[2021-07-03] MEDS ORDERED: DEXAMETHASONE SOD PHOSPHATE 10 MG/1 ML VIAL ONE (16:35)
== END 2021-07-03 17:10 | disposition home or self-care (01) ==
LOC: FER 15:32
PROC: 3E0233Z Introduction of Anti-inflammatory into Muscle, Percutaneous Approach (ICD-10-PCS; principal; 2021-07-03)
DX: U07.1 COVID-19 (principal); J02.9 Acute pharyngitis, unspecified
CPT/HCPCS: 93005; 99283-25; J1100

== ENCOUNTER 2022-03-10 05:48 | Emergency (ER) | payer OTHER ==
[2022-03-10 05:58] VITALS: BP 128/83; PULSE 80; RESP 18; TEMP 98; BMI 21.9
[2022-03-10] MEDS ORDERED: morphine CARPU-JECT 4 MG/1 ML DISP.SYRIN IVPUSH ONE (06:30)
[2022-03-10] MEDS ORDERED: SODIUM CHLORIDE 0.9% 1000 ML INFUS.BAG IV ONE (06:30)
[2022-03-10] MEDS ORDERED: morphine SULFATE 4 MG/ML VIAL ONE (06:31)
[2022-03-10 07:30] LABS: HEMATOCRIT 45.5 % (35.4-49); HEMOGLOBIN 15.5 G/dL (11.7-16.9); MCH 30.8 pg (25.7-33.7); MCHC 34.1 g/dl (32.0-35.9); MEAN CELL VOLUME 90.4 fl (80-96); PLATELET COUNT 274.2 10^3/uL (134-434); RBC 5.03 10^6/uL (4.00-5.60); RDW 14.3 % (11.9-15.9); WHITE BLOOD COUNT 7.6 10^3/uL (4.0-10.8)
[2022-03-10 07:34] LABS: ALBUMIN 4.3 g/dl (3.4-5.0); BILIRUBIN,TOTAL 0.8 mg/dl (0.2-1); CALCIUM 9.8 mg/dl (8.5-10); CREATININE 0.8 mg/dl (0.55-1.3)
[2022-03-10 09:25] LABS: PLATELET ESTIMATE ADEQUATE
[2022-03-10] MEDS ORDERED: ACETAMINOPHEN 1000 MG/100 ML BAG IVPB ONE (09:27)
[2022-03-10] MEDS ORDERED: ACETAMINOPHEN INJECTION 100 ML IVPB ONE (09:30)
== END 2022-03-10 10:47 | disposition home or self-care (01) ==
LOC: FER 05:48
PROC: 3E033GC Introduction of Other Therapeutic Substance into Peripheral Vein, Percutaneous Approach (ICD-10-PCS; principal; 2022-03-10)
DX: R10.84 Generalized abdominal pain (principal)
CPT/HCPCS: 36415; 74177-TC; 80053; 81003; 83690; 85025; 99285-25; Q9967

== ENCOUNTER 2022-08-09 08:34 | Emergency (ER) | payer OTHER ==
[2022-08-09] MEDS ORDERED: SODIUM CHLORIDE 1,000 ML IV ONE (08:58)
[2022-08-09 09:00] VITALS: RESP 16; TEMP 98.7; BMI 21.2
[2022-08-09 09:42] LABS: HEMATOCRIT 43.6 % (35.4-49); HEMOGLOBIN 15.4 G/dL (11.7-16.9); MCH 31.8 pg (25.7-33.7); MCHC 35.3 g/dl (32.0-35.9); MEAN CELL VOLUME 90.3 fl (80-96); MEAN PLT VOLUME 8.7 fl (7.5-11.1); PLATELET COUNT 252.7 10^3/uL (134-434); RBC 4.83 10^6/uL (4.00-5.60); RDW 13.2 % (11.9-15.9)
[2022-08-09 09:46] LABS: PLATELET ESTIMATE ADEQUATE
[2022-08-09 09:47] LABS: ALBUMIN 4.6 g/dl (3.4-5.0); BILIRUBIN,TOTAL 0.7 mg/dl (0.2-1); CALCIUM 10.4 mg/dl (8.5-10); CREATININE 0.9 mg/dl (0.55-1.3); TOT PROT 7.5 g/dl (6.4-8.2)
[2022-08-09 11:02] VITALS: BP 101/79; PULSE 82
== END 2022-08-09 11:07 | disposition home or self-care (01) ==
LOC: FER 08:34
DX: R55 Syncope and collapse (principal)
CPT/HCPCS: 36415; 80053; 84484; 85025; 93005; 99284-25

== ENCOUNTER 2024-11-08 17:13 | Emergency (ER) | payer OTHER ==
[2024-11-08 17:35] VITALS: BP 124/96; PULSE 86; RESP 16; TEMP 98.4; BMI 24.3
[2024-11-08] MEDS ORDERED: IBUPROFEN 400 MG TABLET (FP) PO ONE (18:09)
[2024-11-08] MEDS: IBUPROFEN 400 MG TABLET (FP) PO ONE (18:11)
[2024-11-08] MEDS: ACETAMINOPHEN 325 MG TABLET (FP) PO ONE (19:54)
== END 2024-11-08 20:33 | disposition home or self-care (01) ==
LOC: FER 17:13
DX: M25.531 Pain in right wrist (principal); M79.89 Other specified soft tissue disorders; W01.0XXA Fall on same level from slipping, tripping and stumbling without subsequent striking against object, initial encounter
CPT/HCPCS: 73110-TC-RT-FY; 73130-TC-RT-FY; 99283-25